=== PATIENT | male | born 1975 | race Caucasian/White ===

== ENCOUNTER 2017-06-28 16:06 | Emergency (ER) | payer BC | END 2017-06-28 16:36 | disposition home or self-care (01) | LOC: NAV ERS 16:06 | DX: M54.5 Low back pain (principal); F32.9 Major depressive disorder, single episode, unspecified | CPT/HCPCS: 99283 ==

== ENCOUNTER 2020-11-04 15:36 | Emergency (ER) | payer BC, SELFPAY | END 2020-11-04 16:08 | disposition home or self-care (01) | LOC: NAV ERS 15:36 | DX: M25.562 Pain in left knee (principal) | CPT/HCPCS: 99283 ==